=== PATIENT | female | born 1995 | race Caucasian/White ===

== ENCOUNTER 2019-05-31 15:16 | Emergency (ER) | payer BC ==
[~2019-05-31] VITALS: Ht 172.7 cm; Wt 133.9 kg
[2019-05-31] MEDS ORDERED: AUGMENTIN 875-1 EACH PO (16:07)
== END 2019-05-31 16:23 | disposition home or self-care (01) ==
LOC: ED 15:16
DX: S61.255A Open bite of left ring finger without damage to nail, initial encounter (principal); W54.0XXA Bitten by dog, initial encounter; Z88.0 Allergy status to penicillin
CPT/HCPCS: 12001; 99283-25

== ENCOUNTER 2020-06-04 03:29 | Emergency (ER) | payer BC ==
[~2020-06-04] VITALS: Ht 172.7 cm; Wt 133.8 kg
[~2020-06-04 03:29] MED LIST: AUGMENTIN 875-1 EACH PO
[2020-06-04] MEDS ORDERED: DOXYCYCLINE HY100 MG PO (05:11)
[2020-06-04] MEDS ORDERED: HYDROCODON-ACE1 EA10 PO (05:11)
== END 2020-06-04 05:35 | disposition home or self-care (01) ==
LOC: ED 03:29
PROC: 0HQ1XZZ Repair Face Skin, External Approach (ICD-10-PCS; principal; 2020-06-04)
DX: S01.451A Open bite of right cheek and temporomandibular area, initial encounter (principal); S01.85XA Open bite of other part of head, initial encounter; S01.25XA Open bite of nose, initial encounter; S31.45XA Open bite of vagina and vulva, initial encounter; W54.0XXA Bitten by dog, initial encounter; Z88.0 Allergy status to penicillin
CPT/HCPCS: 99283-25